=== PATIENT | male | born 1985 | race Caucasian/White ===

== ENCOUNTER 2023-07-12 11:37 | Emergency (ER) | payer OTHER ==
[2023-07-12 12:55] LABS: BASOPHILS ABSOLUTE AUTO 0.03 K/uL (0.00-0.20); BASOPHILS PERCENT AUTO 0.3 % (0.0-2.0); EOSINOPHILS ABSOLUTE AUTO 0.25 K/uL (0.00-0.50); EOSINOPHILS PERCENT AUTO 2.6 % (0.0-5.0); HEMATOCRIT 40.5 % (39.0-49.0); HEMOGLOBIN 14.2 g/dL (13.1-16.8); LYMPHOCYTES ABSOLUTE AUTO 2.72 K/uL (0.50-3.50); LYMPHOCYTES PERCENT AUTO 28.8 % (10.0-50.0); MEAN CORPUSCULAR HEMOGLOBIN 31.3 pg (28.2-33.3); MEAN CORPUSCULAR HGB CONC 35.1 g/dL (31.7-36.0); MEAN CORPUSCULAR VOLUME 89.2 fL (84.0-98.0); MONOCYTES ABSOLUTE AUTO 1.28 K/uL (0.00-1.00); MONOCYTES PERCENT AUTO 13.6 % (2.0-14.0); NEUTROPHILS ABSOLUTE AUTO 5.16 K/uL (1.40-7.00); NEUTROPHILS PERCENT AUTO 54.7 % (45.0-80.0); PLATELET COUNT,PLT 410 K/uL (150-350); RED BLOOD CELL COUNT 4.54 M/uL (4.33-5.41); RED CELL DISTRIBUTION WIDTH 12.2 % (11.2-14.1); WHITE BLOOD CELL COUNT,WBC 9.4 K/uL (4.0-10.2)
[2023-07-12 13:02] LABS: ALBUMIN 3.8 g/dL (3.4-5.0); ANION GAP 8.4 meq/L (7-15); BILIRUBIN TOTAL 1.2 mg/dL (0.2-1.0); CALCIUM 8.8 mg/dL (8.5-10.1); CARBON DIOXIDE,CO2 28.6 mmol/L (21.0-32.0); CREATININE 1.09 mg/dL (0.51-1.17); EST CRCL DRUG DOSING (CG) 103.85 mL/min; ETHANOL BLOOD MEDICAL 0.003 g/dL (0.000-0.080); POTASSIUM,K 3.6 mmol/L (3.5-5.1); PROTEIN TOTAL,TP 6.6 g/dL (6.4-8.2)
[2023-07-12 13:08] LABS: CORONAVIRUS COVID-19 NAA NEGATIVE (NEGATIVE); INFLUENZA A NAA NEGATIVE (NEGATIVE); INFLUENZA B NAA NEGATIVE (NEGATIVE); RESPIRATORY SYNCYTIAL VIR NAA NEGATIVE (NEGATIVE)
[2023-07-12] MEDS ORDERED: Nicotine 21 MG/24 Hr Patch TRDERM ONE (13:34)
[2023-07-12 13:52] LABS: APPEARANCE,URINE CLEAR; BILIRUBIN,URINE NEGATIVE (NEGATIVE); COLOR,URINE YELLOW; GLUCOSE,URINE NEGATIVE (NEGATIVE); KETONES,URINE NEGATIVE (NEGATIVE); LEUKOCYTE ESTERASE,URINE NEGATIVE (NEGATIVE); NITRITE,URINE NEGATIVE (NEGATIVE); OCCULT BLOOD,URINE NEGATIVE (NEGATIVE); PROTEIN,URINE NEGATIVE (NEGATIVE); UROBILINOGEN,URINE 0.2 E.U./dL (0.2-1.0)
[2023-07-12 14:02] LABS: AMPHETAMINES SCREEN, URINE POSITIVE (NEGATIVE); BARBITURATE SCREEN,URINE NEGATIVE (NEGATIVE); BENZODIAZEPINES SCREEN,URINE NEGATIVE (NEGATIVE); COCAINE METABOLITES,URINE NEGATIVE (NEGATIVE); EDDP,URINE SCREEN NEGATIVE (NEGATIVE); METHAMPHETAMINES SCREEN, URINE POSITIVE (NEGATIVE); TCA SCREEN,URINE NEGATIVE (NEGATIVE); THC SCREEN,URINE 50 NG/ML POSITIVE (NEGATIVE)
[2023-07-12 14:03] LABS: BUPRENORPHINE SCREEN,URINE NEGATIVE (NEGATIVE); OXYCODONE SCREEN,URINE NEGATIVE (NEGATIVE)
[2023-07-12] MEDS ORDERED: OLANZapine 10 MG Vial IM ONE (17:16)
[2023-07-12] MEDS ORDERED: Haloperidol Lactate 5 MG/ML SDV IM ONE ×2 (17:28→17:35)
[2023-07-12] MEDS ORDERED: diphenhydrAMINE 50 MG/ML SDV IM ONE (17:28)
[2023-07-12] MEDS ORDERED: LORazepam 2 MG/ML SDV IM ONE (17:28)
== END 2023-07-12 18:35 ==
LOC: LL.ED 11:37
DX: F15.10 Other stimulant abuse, uncomplicated (principal); F16.10 Hallucinogen abuse, uncomplicated; F17.210 Nicotine dependence, cigarettes, uncomplicated; Z20.822 Contact with and (suspected) exposure to COVID-19
CPT/HCPCS: 0241U; 36415; 80053; 80143; 80305; 80307; 81003; 83735; 85025; 96372; 99284; 99285; A9270; J1200; J1630; J2060

== ENCOUNTER 2024-06-18 19:18 | Emergency (ER) | payer OTHER ==
[2024-06-18] MEDS ORDERED: Sodium Chloride 0.9% 10 ML Syringe FLUSH PRN (19:26)
[2024-06-18 19:35] LABS: BASOPHILS ABSOLUTE AUTO 0.03 K/uL (0.00-0.20); BASOPHILS PERCENT AUTO 0.3 % (0.0-2.0); EOSINOPHILS ABSOLUTE AUTO 0.13 K/uL (0.00-0.50); EOSINOPHILS PERCENT AUTO 1.1 % (0.0-5.0); HEMATOCRIT 45.7 % (39.0-49.0); HEMOGLOBIN 16.6 g/dL (13.1-16.8); LYMPHOCYTES ABSOLUTE AUTO 2.24 K/uL (0.50-3.50); LYMPHOCYTES PERCENT AUTO 18.8 % (10.0-50.0); MEAN CORPUSCULAR HEMOGLOBIN 31.3 pg (28.2-33.3); MEAN CORPUSCULAR HGB CONC 36.3 g/dL (31.7-36.0); MEAN CORPUSCULAR VOLUME 86.1 fL (84.0-98.0); MONOCYTES PERCENT AUTO 5.9 % (2.0-14.0); NEUTROPHILS ABSOLUTE AUTO 8.83 K/uL (1.40-7.00); NEUTROPHILS PERCENT AUTO 73.9 % (45.0-80.0); PLATELET COUNT,PLT 400 K/uL (150-350); RED BLOOD CELL COUNT 5.31 M/uL (4.33-5.41); RED CELL DISTRIBUTION WIDTH 11.8 % (11.2-14.1); WHITE BLOOD CELL COUNT,WBC 11.9 K/uL (4.0-10.2)
[2024-06-18] MEDS: Lactated Ringers 1,000 ML IV ONE (19:40)
[2024-06-18 19:56] LABS: ALANINE AMINOTRANSFERASE,ALT 42 U/L (12-78); ALBUMIN 3.7 g/dL (3.4-5.0); ALKALINE PHOSPHATASE 90 IU/L (46-116); ANION GAP 10.6 meq/L (7-15); ASPARTATE AMNIOTRANSFERASE,AST 25 U/L (15-37); BLOOD UREA NITROGEN,BUN 10 mg/dL (7-18); CALCIUM 8.8 mg/dL (8.5-10.1); CARBON DIOXIDE,CO2 27.4 mmol/L (21.0-32.0); CHLORIDE,CL 101 mmol/L (98-107); CREATININE 0.95 mg/dL (0.51-1.17); ESTIMATED GFR 104 mL/min (>=60); GLUCOSE RANDOM 175 mg/dL (70-99); POTASSIUM,K 4.4 mmol/L (3.5-5.1); PROTEIN TOTAL,TP 7.1 g/dL (6.4-8.2); SODIUM,NA 139 mmol/L (136-145)
[2024-06-18 19:57] LABS: PROTHROMBIN TIME 10.1 SEC (9.0-11.1)
== END 2024-06-18 21:30 | disposition home or self-care (01) ==
LOC: LL.ED 19:18
DX: R51.9 Headache, unspecified (principal); E86.0 Dehydration; R29.818 Other symptoms and signs involving the nervous system
CPT/HCPCS: 36415; 70450; 72125; 72128; 72131; 80053; 83605; 85025; 85610; 93005; 96360; 99284-25; J7120